=== PATIENT | male | born 1940 | race Caucasian/White ===

== ENCOUNTER 2017-12-07 09:32 | Emergency (ER) | payer MEDICARE ==
[2017-12-07] MEDS ORDERED: Oxymetazoline 0.05% Nasal Spray 15 ML Bottle NAS ONE (09:33)
[2017-12-07 09:40] VITALS: BP 159/66
--- NOTE | 2017-12-07 09:40 | EDM.PDOC ---
ED HPI GENERAL MEDICAL PROBLEM - General Stated Complaint: BLOODY NOSE Time Seen by Provider: 12/07/17 09:35 Source of Information: Reports: Patient History Limitations: Reports: No Limitations - History of Present Illness INITIAL COMMENTS - FREE TEXT/NARRATIVE: This 77 yo male patient reports to the ED with a bloody nose. The patient reports he noticed the bloody nose earlier this morning, the bleeding stopped for a little while, but started again. The patient reports he has not been able to control the bleeding this time. The patient is on blood thinners (Plavix and aspirin) increasing the difficulties in stopping the bleeding. Onset: Today Duration: Minutes:, Constant Location: Reports: Face Quality: Reports: Dull Severity: Moderate Improves with: Reports: None Worsens with: Reports: None Associated Symptoms: Reports: No Other Symptoms - Related Data Allergies Allergy/AdvReac Type Severity Reaction Status Date / Time No Known Allergies Allergy Verified 12/07/17 10:08 Home Meds: Home Meds Aspirin [Noemy Chewable] 81 mg PO DAILY 10/23/13 [History] Clopidogrel [Plavix] 75 mg PO DAILY 10/23/13 [History] Insulin Lispro [Humalog Kwikpen U-100] 10 units SQ TIDMEALS 10/23/13 [History] Levothyroxine [Synthroid] 0.05 mg PO DAILY 10/23/13 [History] Lisinopril [Zestril] 5 mg PO BID 10/23/13 [History] Nitroglycerin [Nitrostat] 0.4 mg SL ASDIRECTED PRN 10/23/13 [History] Tamsulosin [Tamsulosin 24 Hr] 0.4 mg PO DAILY 10/23/13 [History] atorvaSTATin [Lipitor] 40 mg PO BEDTIME 10/23/13 [History] metFORMIN [Glucophage] 1,000 mg PO BIDM 10/23/13 [History] Metoprolol Succinate [Toprol XL 50mg] 75 mg PO DAILY 02/08/16 [History] Furosemide [Furosemide] 40 mg PO ASDIRECTED 07/07/16 [History] Insulin Glarg,Human.Rec.Analog [LantUS Solostar] 30 units SQ BEDTIME 07/07/16 [ History] Isosorbide Mononitrate [Isosorbide Mononitrate ER] 30 mg PO DAILY 07/07/16 [ History] Acetaminophen [Mapap] 325 mg PO DAILY 12/30/16 [History] Sertraline [Zoloft] 50 mg PO DAILY 12/30/16 [History] Past Medical History HEENT History: Reports: None, Cataract, Impaired Vision Other HEENT History: wears glasses, Cardiovascular History: Reports: Angina, CAD, Cardiomyopathy, Heart Failure, High Cholesterol, Hypertension, Other (See Below) Other Cardiovascular History: SINUS BRADYCARDIA Respiratory History: Reports: None Gastrointestinal History: Reports: None Genitourinary History: Reports: BPH, Retention, Urinary Musculoskeletal History: Reports: None Neurological History: Reports: Other (See Below) Other Neuro History: INSOMNIA Psychiatric History: Reports: Anxiety Endocrine/Metabolic History: Reports: Diabetes, Type II, Hypothyroidism Hematologic History: Reports: Anemia, B12 Deficiency, Iron Deficiency Immunologic History: Reports: None Oncologic (Cancer) History: Reports: None Dermatologic History: Reports: None - Infectious Disease History Infectious Disease History: Reports: Chicken Pox - Past Surgical History Cardiovascular Surgical History: Reports: Coronary Artery Bypass GI Surgical History: Reports: Hernia, Inguinal Neurological Surgical History: Reports: Lumbar Spine Social & Family History - Tobacco Use Smoking Status *Q: Never Smoker Second Hand Smoke Exposure: No - Caffeine Use Caffeine Use: Reports: Soda - Recreational Drug Use Recreational Drug Use: No - Living Situation & Occupation Living situation: Reports: Alone Occupation: Employed ED ROS ENT - Review of Systems Review Of Systems: ROS reveals no pertinent complaints other than HPI. ED EXAM, ENT - Physical Exam Exam: See Below Exam Limited By: No Limitations General Appearance: Alert, WD/WN, Moderate Distress Eye Exam: Bilateral Eye: EOMI, Normal Inspection, PERRL Ears: Normal External Exam, Normal Canal, Hearing Grossly Normal, Normal TMs Nose: Active Bleeding (Right posterior nare) Mouth/Throat: Normal Inspection, Normal Gums, Normal Lips, Normal Oropharynx, Normal Teeth Head: Atraumatic, Normocephalic Neck: Normal Inspection, Supple, Non-Tender, Full Range of Motion Respiratory/Chest: No Respiratory Distress, Lungs Clear, Normal Breath Sounds, No Accessory Muscle Use, Chest Non-Tender Cardiovascular: Normal Peripheral Pulses, Regular Rate, Rhythm, No Edema, No Gallop, No JVD, No Murmur, No Rub GI/Abdominal: Normal Bowel Sounds (Male) Exam: Deferred Rectal (Males) Exam: Deferred Back: Normal Inspection, Full Range of Motion Extremities: Normal Inspection, Normal Range of Motion, Non-Tender, No Pedal Edema, Normal Capillary Refill Neurological: Alert, Oriented, CN II-XII Intact, Normal Cognition, Normal Gait, Normal Reflexes, No Motor/Sensory Deficits Psychiatric: Normal Affect, Normal Mood Skin: Warm, Dry, Intact, Normal Color, No Rash Lymphatic: No Adenopathy ED ENT PROCEDURES - Epistaxis Procedure Indication: Epistaxis Recent anticoagulants/antiplatlets: Yes Uncontrolled HTN: No Recent septal/nasal surgery: No Site of bleeding: Right Nare Clearing of clots: Patient Blew Nose Topical Meds: Phenylephrine Ice pack to area: No Posterior packing: Long Nasal Tampon Complications: No Course - Vital Signs Last Recorded V/S: Last Vital Signs Temp 36.8 C 12/07/17 09:36 Pulse 55 L 12/07/17 09:36 Resp 16 12/07/17 09:36 BP 159/66 H 12/07/17 09:36 Pulse Ox 99 12/07/17 09:36 - Orders/Labs/Meds Meds: Medications Discontinued Medications Generic Name Dose Route Start Last Admin Trade Name Jericho PRN Reason Stop Dose Admin Oxymetazoline HCl 1 ml 12/07/17 09:33 12/07/17 09:42 Afrin Original 0.05% Nasal [place] MARGARETH 12/07/17 09:34 1 ml ONETIME ONE Administration Departure - Departure Time of Disposition: 10:37 Disposition: Home, Self-Care 01 Condition: Fair Clinical Impression: Epistaxis - Discharge Information Instructions: Nosebleed, [id number] Care Plan Goals: The patient was advised of the examination results during the visit. The patient 's right nare was packed with a long (anterior/posterior) nasal packing. The patient was instructed to leave the packing in place for the next 3 days. The patient should establish an appointment with his primary care facility for removal of the nasal packing. If the patient has any additional symptoms or concerns, the patient should either follow-up with his primary care facility or return to the emergency department.
== END 2017-12-07 10:56 | disposition home or self-care (01) ==
LOC: DL.ED 09:32
DX: R04.0 Epistaxis (principal); I11.0 Hypertensive heart disease with heart failure; I50.9 Heart failure, unspecified; I25.10 Atherosclerotic heart disease of native coronary artery without angina pectoris; E11.9 Type 2 diabetes mellitus without complications; E03.9 Hypothyroidism, unspecified; Z95.1 Presence of aortocoronary bypass graft; Z79.4 Long term (current) use of insulin; Z79.899 Other long term (current) drug therapy; Z79.82 Long term (current) use of aspirin; Z79.02 Long term (current) use of antithrombotics/antiplatelets
CPT/HCPCS: 30901; 30905; 99282; 99283

== ENCOUNTER 2017-12-08 10:09 | Emergency (ER) | payer MEDICARE ==
[2017-12-08] MEDS ORDERED: Oxymetazoline 0.05% Nasal Spray 15 ML Bottle NAS ONE (10:14)
--- NOTE | 2017-12-08 10:19 | EDM.PDOC ---
ED HPI GENERAL MEDICAL PROBLEM - General Stated Complaint: BLOODY NOSE Time Seen by Provider: 12/08/17 10:10 Source of Information: Reports: Patient History Limitations: Reports: No Limitations - History of Present Illness INITIAL COMMENTS - FREE TEXT/NARRATIVE: This 77 yo male patient reports to the ED with a continued nose bleed. The patient was seen in the ED yesterday for the same thing, had packing placed in the right nare, but has had episodes of continued bleeding. The patient is on Plavix and aspirin due to previous cardiac problems. Onset Date: 12/07/17 Duration: Intermittent Location: Reports: Face (nosebleed) Quality: Reports: Other Severity: Moderate Improves with: Reports: None Worsens with: Reports: None Associated Symptoms: Reports: No Other Symptoms - Related Data Allergies Allergy/AdvReac Type Severity Reaction Status Date / Time No Known Allergies Allergy Verified 12/07/17 10:08 Home Meds: Home Meds Aspirin [Noemy Chewable] 81 mg PO DAILY 10/23/13 [History] Clopidogrel [Plavix] 75 mg PO DAILY 10/23/13 [History] Insulin Lispro [Humalog Kwikpen U-100] 10 units SQ TIDMEALS 10/23/13 [History] Levothyroxine [Synthroid] 0.05 mg PO DAILY 10/23/13 [History] Lisinopril [Zestril] 5 mg PO BID 10/23/13 [History] Nitroglycerin [Nitrostat] 0.4 mg SL ASDIRECTED PRN 10/23/13 [History] Tamsulosin [Tamsulosin 24 Hr] 0.4 mg PO DAILY 10/23/13 [History] atorvaSTATin [Lipitor] 40 mg PO BEDTIME 10/23/13 [History] metFORMIN [Glucophage] 1,000 mg PO BIDM 10/23/13 [History] Metoprolol Succinate [Toprol XL 50mg] 75 mg PO DAILY 02/08/16 [History] Furosemide [Furosemide] 40 mg PO ASDIRECTED 07/07/16 [History] Insulin Glarg,Human.Rec.Analog [LantUS Solostar] 30 units SQ BEDTIME 07/07/16 [ History] Isosorbide Mononitrate [Isosorbide Mononitrate ER] 30 mg PO DAILY 07/07/16 [ History] Acetaminophen [Mapap] 325 mg PO DAILY 12/30/16 [History] Sertraline [Zoloft] 50 mg PO DAILY 12/30/16 [History] Past Medical History HEENT History: Reports: None, Cataract, Impaired Vision Other HEENT History: wears glasses, Cardiovascular History: Reports: Angina, CAD, Cardiomyopathy, Heart Failure, High Cholesterol, Hypertension, Other (See Below) Other Cardiovascular History: SINUS BRADYCARDIA Respiratory History: Reports: None Gastrointestinal History: Reports: None Genitourinary History: Reports: BPH, Retention, Urinary Musculoskeletal History: Reports: None Neurological History: Reports: Other (See Below) Other Neuro History: INSOMNIA Psychiatric History: Reports: Anxiety Endocrine/Metabolic History: Reports: Diabetes, Type II, Hypothyroidism Hematologic History: Reports: Anemia, B12 Deficiency, Iron Deficiency Immunologic History: Reports: None Oncologic (Cancer) History: Reports: None Dermatologic History: Reports: None - Infectious Disease History Infectious Disease History: Reports: Chicken Pox - Past Surgical History Cardiovascular Surgical History: Reports: Coronary Artery Bypass GI Surgical History: Reports: Hernia, Inguinal Neurological Surgical History: Reports: Lumbar Spine Social & Family History - Tobacco Use Smoking Status *Q: Never Smoker Second Hand Smoke Exposure: No - Caffeine Use Caffeine Use: Reports: Soda - Recreational Drug Use Recreational Drug Use: No - Living Situation & Occupation Living situation: Reports: Alone Occupation: Employed ED ROS ENT - Review of Systems Review Of Systems: ROS reveals no pertinent complaints other than HPI. ED EXAM, ENT - Physical Exam Exam: See Below Exam Limited By: No Limitations General Appearance: Alert, WD/WN, Mild Distress Eye Exam: Bilateral Eye: EOMI, Normal Inspection, PERRL Ears: Normal External Exam, Normal Canal, Hearing Grossly Normal, Normal TMs Nose: Active Bleeding (right nare) Mouth/Throat: Normal Inspection, Normal Gums, Normal Lips, Normal Oropharynx, Normal Teeth Head: Atraumatic, Normocephalic Neck: Normal Inspection, Supple, Non-Tender, Full Range of Motion Respiratory/Chest: No Respiratory Distress, Lungs Clear, Normal Breath Sounds, No Accessory Muscle Use, Chest Non-Tender Cardiovascular: Normal Peripheral Pulses, Regular Rate, Rhythm, No Edema, No Gallop, No JVD, No Murmur, No Rub GI/Abdominal: Normal Bowel Sounds, Soft, Non-Tender, No Organomegaly, No Distention, No Abnormal Bruit, No Mass (Male) Exam: Deferred Rectal (Males) Exam: Deferred Back: Normal Inspection, Full Range of Motion Extremities: Normal Inspection, Normal Range of Motion, Non-Tender, No Pedal Edema, Normal Capillary Refill Neurological: Alert, Oriented, CN II-XII Intact, Normal Cognition, Normal Gait, Normal Reflexes, No Motor/Sensory Deficits Psychiatric: Normal Affect, Normal Mood Skin: Warm, Dry, Intact, Normal Color, No Rash Lymphatic: No Adenopathy Course - Vital Signs Last Recorded V/S: Last Vital Signs Temp 36.0 C 12/08/17 10:11 Pulse 67 12/08/17 11:14 Resp 18 12/08/17 11:14 BP 98/65 12/08/17 11:14 Pulse Ox 92 L 12/08/17 11:14 - Orders/Labs/Meds Meds: Medications Discontinued Medications Generic Name Dose Route Start Last Admin Trade Name Jericho PRN Reason Stop Dose Admin Oxymetazoline HCl 1 ml 12/08/17 10:14 12/08/17 10:28 Afrin Original 0.05% Nasal [place] MARGARETH 12/08/17 10:15 2 spray ONETIME ONE Administration - Re-Assessments/Exams Free Text/Narrative Re-Assessment/Exam: 12/08/17 10:41 The packing was removed from yesterday with no return of bleeding. The patient' s right nare was sprayed with Afrin. The patient was encouraged to wait for at least 15 minutes to monitor for returned bleeding. Departure - Departure Time of Disposition: 11:34 Disposition: Home, Self-Care 01 Condition: Fair Clinical Impression: Epistaxis - Discharge Information Instructions: Nosebleed, [id number] Care Plan Goals: The patient was advised of the examination results during the visit. The packing was removed and Afrin was applied to the right nare with no further bleeding. If the patient has any additional symptoms or concerns, the patient should return to the ED or follow-up with his primary care facility.
[2017-12-08 11:15] VITALS: BP 98/65
== END 2017-12-08 11:40 | disposition home or self-care (01) ==
LOC: DL.ED 10:09
DX: R04.0 Epistaxis (principal); I50.9 Heart failure, unspecified; E78.00 Pure hypercholesterolemia, unspecified; E11.9 Type 2 diabetes mellitus without complications; Z79.82 Long term (current) use of aspirin; Z79.899 Other long term (current) drug therapy; Z79.4 Long term (current) use of insulin
CPT/HCPCS: 99282; 99283

== ENCOUNTER 2017-12-14 06:56 | Emergency (ER) | payer MEDICARE ==
[2017-12-14] MEDS ORDERED: Oxymetazoline 0.05% Nasal Spray 15 ML Bottle NAS ONE (06:57)
[2017-12-14 07:19] VITALS: BP 181/102
--- NOTE | 2017-12-14 07:44 | EDM.PDOC ---
ED HPI GENERAL MEDICAL PROBLEM - General Chief Complaint: ENT Problem Stated Complaint: BLOODY NOSE Time Seen by Provider: 12/14/17 07:01 Source of Information: Reports: Patient History Limitations: Reports: No Limitations - History of Present Illness INITIAL COMMENTS - FREE TEXT/NARRATIVE: This 77 yo male patient reports to the ED with a bloody nose that started at 0130 this morning. The patient has attempted to stop the bleeding with pinching his nose, applying ice to the area and packing his nose with no resolution of the symptoms. The patient was seen 2 times last week in the ED for nose bleeds and reports several additional episodes between the visits. The patient reports he has an appointment with Dr. Rojas today. Onset: Today Onset Date: 12/14/17 Onset Time: 01:30 Duration: Constant Location: Reports: Face Quality: Reports: Other Severity: Moderate Improves with: Reports: None Worsens with: Reports: None Associated Symptoms: Reports: No Other Symptoms - Related Data Allergies Allergy/AdvReac Type Severity Reaction Status Date / Time No Known Allergies Allergy Verified 12/07/17 10:08 Home Meds: Home Meds Aspirin [Noemy Chewable] 81 mg PO DAILY 10/23/13 [History] Clopidogrel [Plavix] 75 mg PO DAILY 10/23/13 [History] Insulin Lispro [Humalog Kwikpen U-100] 10 units SQ TIDMEALS 10/23/13 [History] Levothyroxine [Synthroid] 0.05 mg PO DAILY 10/23/13 [History] Lisinopril [Zestril] 5 mg PO BID 10/23/13 [History] Nitroglycerin [Nitrostat] 0.4 mg SL ASDIRECTED PRN 10/23/13 [History] Tamsulosin [Tamsulosin 24 Hr] 0.4 mg PO DAILY 10/23/13 [History] atorvaSTATin [Lipitor] 40 mg PO BEDTIME 10/23/13 [History] metFORMIN [Glucophage] 1,000 mg PO BIDM 10/23/13 [History] Metoprolol Succinate [Toprol XL 50mg] 75 mg PO DAILY 02/08/16 [History] Furosemide [Furosemide] 40 mg PO ASDIRECTED 07/07/16 [History] Insulin Glarg,Human.Rec.Analog [LantUS Solostar] 30 units SQ BEDTIME 07/07/16 [ History] Isosorbide Mononitrate [Isosorbide Mononitrate ER] 30 mg PO DAILY 07/07/16 [ History] Acetaminophen [Mapap] 325 mg PO DAILY 12/30/16 [History] Sertraline [Zoloft] 50 mg PO DAILY 12/30/16 [History] Past Medical History HEENT History: Reports: None, Cataract, Impaired Vision Other HEENT History: wears glasses, Cardiovascular History: Reports: Angina, CAD, Cardiomyopathy, Heart Failure, High Cholesterol, Hypertension, Other (See Below) Other Cardiovascular History: SINUS BRADYCARDIA Respiratory History: Reports: None Gastrointestinal History: Reports: None Genitourinary History: Reports: BPH, Retention, Urinary Musculoskeletal History: Reports: None Neurological History: Reports: Other (See Below) Other Neuro History: INSOMNIA Psychiatric History: Reports: Anxiety Endocrine/Metabolic History: Reports: Diabetes, Type II, Hypothyroidism Hematologic History: Reports: Anemia, B12 Deficiency, Iron Deficiency Immunologic History: Reports: None Oncologic (Cancer) History: Reports: None Dermatologic History: Reports: None - Infectious Disease History Infectious Disease History: Reports: Chicken Pox - Past Surgical History Head Surgeries/Procedures: Reports: None Cardiovascular Surgical History: Reports: Coronary Artery Bypass GI Surgical History: Reports: Hernia, Inguinal Neurological Surgical History: Reports: Lumbar Spine Social & Family History - Tobacco Use Smoking Status *Q: Never Smoker Second Hand Smoke Exposure: No - Caffeine Use Caffeine Use: Reports: Soda - Recreational Drug Use Recreational Drug Use: No - Living Situation & Occupation Living situation: Reports: Alone Occupation: Employed ED ROS ENT - Review of Systems Review Of Systems: ROS reveals no pertinent complaints other than HPI. ED EXAM, ENT - Physical Exam Exam: See Below Exam Limited By: No Limitations General Appearance: Alert, WD/WN, No Apparent Distress Eye Exam: Bilateral Eye: EOMI, Normal Inspection, PERRL Ears: Normal External Exam, Normal Canal, Hearing Grossly Normal, Normal TMs Nose: Active Bleeding (Right nare) Mouth/Throat: Other (bloody transudate posterior pharynx) Head: Atraumatic, Normocephalic Neck: Normal Inspection, Supple, Non-Tender, Full Range of Motion Respiratory/Chest: No Respiratory Distress, Lungs Clear, Normal Breath Sounds, No Accessory Muscle Use, Chest Non-Tender Cardiovascular: Normal Peripheral Pulses, Regular Rate, Rhythm, No Edema, No Gallop, No JVD, No Murmur, No Rub GI/Abdominal: Normal Bowel Sounds, Soft, Non-Tender, No Organomegaly, No Distention, No Abnormal Bruit, No Mass (Male) Exam: Deferred Rectal (Males) Exam: Deferred Neurological: Alert, Oriented, CN II-XII Intact, Normal Cognition, Normal Gait, Normal Reflexes, No Motor/Sensory Deficits Psychiatric: Normal Affect, Normal Mood Skin: Warm, Dry, Intact, Normal Color, No Rash Lymphatic: No Adenopathy Course - Vital Signs Last Recorded V/S: Last Vital Signs Temp 36.4 C 12/14/17 06:56 Pulse 70 12/14/17 06:56 Resp 18 12/14/17 06:56 BP 181/102 H 12/14/17 06:56 Pulse Ox 98 12/14/17 06:56 - Orders/Labs/Meds Meds: Medications Discontinued Medications Generic Name Dose Route Start Last Admin Trade Name Geraldoq PRN Reason Stop Dose Admin Oxymetazoline HCl 1 ml 12/14/17 06:57 12/14/17 07:00 Afrin Original 0.05% Nasal [place] MARGARETH 12/14/17 06:58 2 spray ONETIME ONE Administration - Re-Assessments/Exams Free Text/Narrative Re-Assessment/Exam: 12/14/17 07:47 bleeding was controlled with pinching the nose and applying Afrin. Departure - Departure Time of Disposition: 07:48 Disposition: Home, Self-Care 01 Condition: Fair Clinical Impression: Epistaxis - Discharge Information Instructions: Nosebleed, [id number] Forms: ED Department Discharge Care Plan Goals: The patient was advised of the examination results during the visit. Bleeding was controlled using Afrin spray and direct pressure. The patient was encouraged to follow-up with an ENT provider for continued evaluation and further management. If the patient has any additional symptoms or concerns, the patient should either visit his primary care facility or return to the emergency department.
== END 2017-12-14 08:00 | disposition home or self-care (01) ==
LOC: DL.ED 06:56
DX: R04.0 Epistaxis (principal); E78.00 Pure hypercholesterolemia, unspecified; E11.9 Type 2 diabetes mellitus without complications; Z79.82 Long term (current) use of aspirin; Z79.4 Long term (current) use of insulin; Z79.899 Other long term (current) drug therapy
CPT/HCPCS: 99282; 99283; A9270

== ENCOUNTER 2017-12-14 08:22 | Emergency (ER) | payer MEDICARE ==
[2017-12-14 08:37] VITALS: BP 149/78
--- NOTE | 2017-12-14 09:06 | EDM.PDOC ---
ED HPI GENERAL MEDICAL PROBLEM - General Chief Complaint: ENT Problem Stated Complaint: BLOODY NOSE Time Seen by Provider: 12/14/17 08:40 Source of Information: Reports: Patient History Limitations: Reports: No Limitations - History of Present Illness INITIAL COMMENTS - FREE TEXT/NARRATIVE: This 77 yo male patient returned to the Ed due to another nose bleed. The patient was seen in the ED and his nose bleed was stopped earlier this morning, but the patient had another nose bleed prior to leaving the facility and reregistered. Onset: Today Duration: Intermittent Location: Reports: Face Quality: Reports: Other Severity: Moderate Improves with: Reports: None Worsens with: Reports: None Associated Symptoms: Reports: No Other Symptoms - Related Data Allergies Allergy/AdvReac Type Severity Reaction Status Date / Time No Known Allergies Allergy Verified 12/07/17 10:08 Home Meds: Home Meds Aspirin [Noemy Chewable] 81 mg PO DAILY 10/23/13 [History] Clopidogrel [Plavix] 75 mg PO DAILY 10/23/13 [History] Insulin Lispro [Humalog Kwikpen U-100] 10 units SQ TIDMEALS 10/23/13 [History] Levothyroxine [Synthroid] 0.05 mg PO DAILY 10/23/13 [History] Lisinopril [Zestril] 5 mg PO BID 10/23/13 [History] Nitroglycerin [Nitrostat] 0.4 mg SL ASDIRECTED PRN 10/23/13 [History] Tamsulosin [Tamsulosin 24 Hr] 0.4 mg PO DAILY 10/23/13 [History] atorvaSTATin [Lipitor] 40 mg PO BEDTIME 10/23/13 [History] metFORMIN [Glucophage] 1,000 mg PO BIDM 10/23/13 [History] Metoprolol Succinate [Toprol XL 50mg] 75 mg PO DAILY 02/08/16 [History] Furosemide [Furosemide] 40 mg PO ASDIRECTED 07/07/16 [History] Insulin Glarg,Human.Rec.Analog [LantUS Solostar] 30 units SQ BEDTIME 07/07/16 [ History] Isosorbide Mononitrate [Isosorbide Mononitrate ER] 30 mg PO DAILY 07/07/16 [ History] Acetaminophen [Mapap] 325 mg PO DAILY 12/30/16 [History] Sertraline [Zoloft] 50 mg PO DAILY 12/30/16 [History] Past Medical History HEENT History: Reports: None, Cataract, Impaired Vision Other HEENT History: wears glasses, Cardiovascular History: Reports: Angina, CAD, Cardiomyopathy, Heart Failure, High Cholesterol, Hypertension, Other (See Below) Other Cardiovascular History: SINUS BRADYCARDIA Respiratory History: Reports: None Gastrointestinal History: Reports: None Genitourinary History: Reports: BPH, Retention, Urinary Musculoskeletal History: Reports: None Neurological History: Reports: Other (See Below) Other Neuro History: INSOMNIA Psychiatric History: Reports: Anxiety Endocrine/Metabolic History: Reports: Diabetes, Type II, Hypothyroidism Hematologic History: Reports: Anemia, B12 Deficiency, Iron Deficiency Immunologic History: Reports: None Oncologic (Cancer) History: Reports: None Dermatologic History: Reports: None - Infectious Disease History Infectious Disease History: Reports: Chicken Pox - Past Surgical History Head Surgeries/Procedures: Reports: None Cardiovascular Surgical History: Reports: Coronary Artery Bypass GI Surgical History: Reports: Hernia, Inguinal Neurological Surgical History: Reports: Lumbar Spine Social & Family History - Tobacco Use Smoking Status *Q: Never Smoker Second Hand Smoke Exposure: No - Caffeine Use Caffeine Use: Reports: Soda - Recreational Drug Use Recreational Drug Use: No - Living Situation & Occupation Living situation: Reports: Alone Occupation: Employed ED ROS ENT - Review of Systems Review Of Systems: ROS reveals no pertinent complaints other than HPI. ED EXAM, ENT - Physical Exam Exam: See Below Exam Limited By: No Limitations General Appearance: Alert, WD/WN, Mild Distress Eye Exam: Bilateral Eye: EOMI, Normal Inspection, PERRL Ears: Normal External Exam, Normal Canal, Hearing Grossly Normal, Normal TMs Nose: Active Bleeding (right nare) Mouth/Throat: Normal Inspection, Normal Gums, Normal Lips, Normal Oropharynx, Normal Teeth Head: Atraumatic, Normocephalic Neck: Normal Inspection, Supple, Non-Tender, Full Range of Motion Respiratory/Chest: No Respiratory Distress, Lungs Clear, Normal Breath Sounds, No Accessory Muscle Use, Chest Non-Tender Cardiovascular: Normal Peripheral Pulses, Regular Rate, Rhythm, No Edema, No Gallop, No JVD, No Murmur, No Rub GI/Abdominal: Normal Bowel Sounds, Soft, Non-Tender, No Organomegaly, No Distention, No Abnormal Bruit, No Mass (Male) Exam: Deferred Rectal (Males) Exam: Deferred Extremities: Normal Inspection, Normal Range of Motion, Non-Tender, No Pedal Edema, Normal Capillary Refill Neurological: Alert, Oriented Skin: Warm, Dry, Intact, Normal Color, No Rash Lymphatic: No Adenopathy Course - Vital Signs Last Recorded V/S: Last Vital Signs Temp 36.3 C 12/14/17 08:36 Pulse 64 12/14/17 08:36 Resp 18 12/14/17 08:36 BP 149/78 H 12/14/17 08:36 Pulse Ox 95 12/14/17 08:36 Departure - Departure Time of Disposition: 09:51 Disposition: Home, Self-Care 01 Condition: Fair Clinical Impression: Epistaxis - Discharge Information Forms: ED Department Discharge Care Plan Goals: The patient was advised of the examination results. The patient's nose was sprayed with Afrin and direct pressure applied to stop bleeding. The patient was observed in the ED for 1 hour with no return of bleeding. If the patient has any additional symptoms or concerns, the patient should follow-up with his primary care facility.
== END 2017-12-14 10:00 | disposition home or self-care (01) ==
LOC: DL.ED 08:22
DX: R04.0 Epistaxis (principal); E78.00 Pure hypercholesterolemia, unspecified; E11.9 Type 2 diabetes mellitus without complications; Z79.82 Long term (current) use of aspirin; Z79.899 Other long term (current) drug therapy; Z79.4 Long term (current) use of insulin
CPT/HCPCS: 99283

== ENCOUNTER 2018-06-03 10:31 | Emergency (ER) | payer MEDICARE ==
[2018-06-03 11:11] VITALS: BP 118/56
[2018-06-03] MEDS ORDERED: Oxymetazoline 0.05% Nasal Spray 15 ML Bottle NAS ONE (11:12)
--- NOTE | 2018-06-03 11:51 | EDM.PDOC ---
ED HPI GENERAL MEDICAL PROBLEM - General Chief Complaint: ENT Problem Stated Complaint: NOSE BLEEDING Time Seen by Provider: 06/03/18 11:35 Source of Information: Reports: Patient History Limitations: Reports: No Limitations - History of Present Illness INITIAL COMMENTS - FREE TEXT/NARRATIVE: This 77 yo male patient reports to the ED with a bloody nose. The patient reports he has had intermittent bleeding since this morning. At the time of the visit, the patient had no blood coming from his nose. The patient reports he has been under increased stress over the past 5 days due to his son being in the hospital in [place] due to head trauma. The patient reports they are in the process of shutting off life support for his son. The patient reports he attempted to pinch his nose which slowed down the bleeding, but it has returned numerous times. The patient has had nose bleeds in the past. Onset: Today Duration: Hour(s):, Intermittent Location: Reports: Face Quality: Reports: Other Severity: Moderate Improves with: Reports: Other (pinching his nose) Worsens with: Reports: None Context: Reports: Other Associated Symptoms: Reports: No Other Symptoms - Related Data Allergies Allergy/AdvReac Type Severity Reaction Status Date / Time No Known Allergies Allergy Verified 12/07/17 10:08 Home Meds: Home Meds Aspirin [Noemy Chewable] 81 mg PO DAILY 10/23/13 [History] Clopidogrel [Plavix] 75 mg PO DAILY 10/23/13 [History] Insulin Lispro [Humalog Kwikpen U-100] 10 units SQ TIDMEALS 10/23/13 [History] Levothyroxine [Synthroid] 0.05 mg PO DAILY 10/23/13 [History] Lisinopril [Zestril] 5 mg PO BID 10/23/13 [History] Nitroglycerin [Nitrostat] 0.4 mg SL ASDIRECTED PRN 10/23/13 [History] Tamsulosin [Tamsulosin 24 Hr] 0.4 mg PO DAILY 10/23/13 [History] atorvaSTATin [Lipitor] 40 mg PO BEDTIME 10/23/13 [History] metFORMIN [Glucophage] 1,000 mg PO BIDM 10/23/13 [History] Metoprolol Succinate [Toprol XL 50mg] 75 mg PO DAILY 02/08/16 [History] Furosemide 40 mg PO ASDIRECTED 07/07/16 [History] Insulin Glarg,Human.Rec.Analog [LantUS Solostar] 30 units SQ BEDTIME 07/07/16 [ History] Isosorbide Mononitrate [Isosorbide Mononitrate ER] 30 mg PO DAILY 07/07/16 [ History] Acetaminophen [Mapap] 325 mg PO DAILY 12/30/16 [History] Sertraline [Zoloft] 50 mg PO DAILY 12/30/16 [History] Past Medical History HEENT History: Reports: None, Cataract, Impaired Vision Other HEENT History: wears glasses, Cardiovascular History: Reports: Angina, CAD, Cardiomyopathy, Heart Failure, High Cholesterol, Hypertension, Other (See Below) Other Cardiovascular History: SINUS BRADYCARDIA Respiratory History: Reports: None Gastrointestinal History: Reports: None Genitourinary History: Reports: BPH, Retention, Urinary Musculoskeletal History: Reports: None Neurological History: Reports: Other (See Below) Other Neuro History: INSOMNIA Psychiatric History: Reports: Anxiety Endocrine/Metabolic History: Reports: Diabetes, Type II, Hypothyroidism Hematologic History: Reports: Anemia, B12 Deficiency, Iron Deficiency Immunologic History: Reports: None Oncologic (Cancer) History: Reports: None Dermatologic History: Reports: None - Infectious Disease History Infectious Disease History: Reports: Chicken Pox - Past Surgical History Head Surgeries/Procedures: Reports: None Cardiovascular Surgical History: Reports: Coronary Artery Bypass GI Surgical History: Reports: Hernia, Inguinal Neurological Surgical History: Reports: Lumbar Spine Social & Family History - Family History Family Medical History: Noncontributory - Tobacco Use Smoking Status *Q: Never Smoker - Caffeine Use Caffeine Use: Reports: Soda - Recreational Drug Use Recreational Drug Use: No - Living Situation & Occupation Living situation: Reports: Alone Occupation: Employed ED ROS ENT - Review of Systems Review Of Systems: ROS reveals no pertinent complaints other than HPI. ED EXAM, ENT - Physical Exam Exam: See Below Exam Limited By: No Limitations General Appearance: Alert, WD/WN, No Apparent Distress Eye Exam: Bilateral Eye: EOMI, Normal Inspection, PERRL Ears: Normal External Exam, Normal Canal, Hearing Grossly Normal, Normal TMs Nose: Other (there is blood in both nares, but no current bleeding) Mouth/Throat: Normal Inspection, Normal Gums, Normal Lips, Normal Oropharynx, Normal Teeth Head: Atraumatic, Normocephalic Neck: Normal Inspection, Supple, Non-Tender, Full Range of Motion Respiratory/Chest: No Respiratory Distress, Lungs Clear, Normal Breath Sounds, No Accessory Muscle Use, Chest Non-Tender Cardiovascular: Normal Peripheral Pulses, Regular Rate, Rhythm, No Edema, No Gallop, No JVD, No Murmur, No Rub GI/Abdominal: Normal Bowel Sounds, Soft, Non-Tender, No Organomegaly, No Distention, No Abnormal Bruit, No Mass (Male) Exam: Deferred Rectal (Males) Exam: Deferred Back: Normal Inspection, Full Range of Motion Extremities: Normal Inspection, Normal Range of Motion, Non-Tender, No Pedal Edema, Normal Capillary Refill Neurological: Alert, Oriented, CN II-XII Intact, Normal Cognition, Normal Gait, Normal Reflexes, No Motor/Sensory Deficits Psychiatric: Normal Affect, Normal Mood Skin: Warm, Dry, Intact, Normal Color, No Rash Lymphatic: No Adenopathy Course - Vital Signs Last Recorded V/S: Last Vital Signs Temp 36.3 C 06/03/18 11:01 Pulse 58 L 06/03/18 11:01 Resp 18 06/03/18 11:01 BP 118/56 L 06/03/18 11:01 Pulse Ox 97 06/03/18 11:01 - Orders/Labs/Meds Meds: Medications Discontinued Medications Generic Name Dose Route Start Last Admin Trade Name [place] PRN Reason Stop Dose Admin Oxymetazoline HCl 1 ml 06/03/18 11:12 06/03/18 11:44 Afrin Original 0.05% Nasal [place] MARGARETH 06/03/18 11:13 1 ml ONETIME ONE Administration Departure - Departure Time of Disposition: 12:52 Disposition: Home, Self-Care 01 Condition: Fair Clinical Impression: Epistaxis not due to trauma, Epistaxis - Discharge Information *PRESCRIPTION DRUG MONITORING PROGRAM REVIEWED*: Not Applicable *COPY OF PRESCRIPTION DRUG MONITORING REPORT IN PATIENT KARIN: Not Applicable Forms: ED Department Discharge Care Plan Goals: The patient was advised of the examination results during the visit. The patient was given nasal sprays of Afrin while in the ED with no recurrent bleeding. If the patient has any additional symptoms or concerns, the patient should either return to the emergency department or follow-up with his primary care facility.
== END 2018-06-03 13:04 | disposition home or self-care (01) ==
LOC: DL.ED 10:31
DX: R04.0 Epistaxis (principal); I11.0 Hypertensive heart disease with heart failure; I50.9 Heart failure, unspecified; E78.00 Pure hypercholesterolemia, unspecified; E11.9 Type 2 diabetes mellitus without complications; E03.9 Hypothyroidism, unspecified; Z79.82 Long term (current) use of aspirin; Z79.4 Long term (current) use of insulin; Z79.899 Other long term (current) drug therapy
CPT/HCPCS: 99283; A9270

== ENCOUNTER 2018-12-22 12:43 | Emergency (ER) | payer MEDICARE ==
[2018-12-22 13:08] VITALS: BP 118/63
[2018-12-22 13:44] LABS: ANION GAP 17.3
[2018-12-22] MEDS ORDERED: Lidocaine 1% with EPINEPHrine 1:100,000 20 ML MDV INJECT ONE (13:44)
[2018-12-22] MEDS ORDERED: Silver Nitrate Applicator Each TOP ONE (13:44)
[2018-12-22] MEDS ORDERED: Oxymetazoline 0.05% Nasal Spray 15 ML Bottle NAS ONE (13:44)
--- NOTE | 2018-12-22 14:48 | EDM.PDOC ---
ED HPI GENERAL MEDICAL PROBLEM - General Chief Complaint: ENT Problem Stated Complaint: BLOODY NOSE Time Seen by Provider: 12/22/18 13:26 Source of Information: Reports: Patient, RN, RN Notes Reviewed History Limitations: Reports: No Limitations - History of Present Illness INITIAL COMMENTS - FREE TEXT/NARRATIVE: Patient presents to ER with complaint of nosebleed which started at 05:30. He tried nasal spray and pinch pressure to nose. This stopped it a few times and then started again. He states he is on Plavix after triple bypass. His house is very dry. Onset: Today Duration: Constant Location: Reports: Other (nose) Quality: Reports: Ache Severity: Severe Improves with: Reports: None Worsens with: Reports: None Associated Symptoms: Reports: No Other Symptoms Treatments [employer]: Reports: Other (see below) Other Treatments [employer]: pressure - Related Data Allergies Allergy/AdvReac Type Severity Reaction Status Date / Time No Known Allergies Allergy Verified 12/22/18 13:08 Home Meds: Home Meds Aspirin [Noemy Chewable] 81 mg PO DAILY 10/23/13 [History] Clopidogrel [Plavix] 75 mg PO DAILY 10/23/13 [History] Insulin Lispro [Humalog Kwikpen U-100] 10 units SQ TIDMEALS 10/23/13 [History] Levothyroxine [Synthroid] 0.05 mg PO DAILY 10/23/13 [History] Lisinopril [Zestril] 5 mg PO BID 10/23/13 [History] Nitroglycerin [Nitrostat] 0.4 mg SL ASDIRECTED PRN 10/23/13 [History] Tamsulosin [Tamsulosin 24 Hr] 0.4 mg PO DAILY 10/23/13 [History] atorvaSTATin [Lipitor] 40 mg PO BEDTIME 10/23/13 [History] metFORMIN [Glucophage] 1,000 mg PO BIDM 10/23/13 [History] Metoprolol Succinate [Toprol XL 50mg] 75 mg PO DAILY 02/08/16 [History] Furosemide 40 mg PO DAILY 07/07/16 [History] Insulin Glarg,Human.Rec.Analog [LantUS Solostar] 30 units SQ BEDTIME 07/07/16 [ History] Isosorbide Mononitrate [Isosorbide Mononitrate ER] 30 mg PO DAILY 07/07/16 [ History] Acetaminophen [Mapap] 325 mg PO DAILY PRN 12/30/16 [History] Sertraline [Zoloft] 50 mg PO DAILY 12/30/16 [History] Past Medical History HEENT History: Reports: None, Cataract, Epistaxis, Impaired Vision Other HEENT History: wears glasses, Cardiovascular History: Reports: Angina, CAD, Cardiomyopathy, Heart Failure, High Cholesterol, Hypertension, Other (See Below) Other Cardiovascular History: SINUS BRADYCARDIA Respiratory History: Reports: None Gastrointestinal History: Reports: None Genitourinary History: Reports: BPH, Retention, Urinary Musculoskeletal History: Reports: None Neurological History: Reports: Other (See Below) Other Neuro History: INSOMNIA Psychiatric History: Reports: Anxiety Endocrine/Metabolic History: Reports: Diabetes, Type II, Hypothyroidism Hematologic History: Reports: Anemia, B12 Deficiency, Iron Deficiency Immunologic History: Reports: None Oncologic (Cancer) History: Reports: None Dermatologic History: Reports: None - Infectious Disease History Infectious Disease History: Reports: Chicken Pox - Past Surgical History Head Surgeries/Procedures: Reports: None Cardiovascular Surgical History: Reports: Coronary Artery Bypass GI Surgical History: Reports: Hernia, Inguinal Neurological Surgical History: Reports: Lumbar Spine Social & Family History - Family History Family Medical History: Noncontributory - Tobacco Use Smoking Status *Q: Never Smoker Second Hand Smoke Exposure: No - Caffeine Use Caffeine Use: Reports: Tea - Recreational Drug Use Recreational Drug Use: No - Living Situation & Occupation Living situation: Reports: Alone Occupation: Employed ED ROS ENT - Review of Systems Review Of Systems: ROS reveals no pertinent complaints other than HPI. ED EXAM, ENT - Physical Exam Exam: See Below Exam Limited By: No Limitations General Appearance: Alert, WD/WN, No Apparent Distress Eye Exam: Bilateral Eye: EOMI, Normal Inspection, PERRL Ears: Normal External Exam, Normal Canal, Hearing Grossly Normal, Normal TMs Nose: Other (active bleeding) Mouth/Throat: Normal Inspection, Normal Gums, Normal Lips, Normal Oropharynx, Normal Teeth Head: Atraumatic Neck: Normal Inspection, Supple, Non-Tender, Full Range of Motion Respiratory/Chest: No Respiratory Distress, Lungs Clear, Normal Breath Sounds, No Accessory Muscle Use, Chest Non-Tender Cardiovascular: Normal Peripheral Pulses, Regular Rate, Rhythm, No Edema, No Gallop, No JVD, No Murmur, No Rub GI/Abdominal: Normal Bowel Sounds, Soft, Non-Tender, No Organomegaly, No Distention, No Abnormal Bruit, No Mass (Male) Exam: Deferred Rectal (Males) Exam: Deferred Back: Normal Inspection, Full Range of Motion Extremities: Normal Inspection, Normal Range of Motion, Non-Tender, No Pedal Edema, Normal Capillary Refill Neurological: Alert, Oriented, CN II-XII Intact, Normal Cognition, Normal Gait, Normal Reflexes, No Motor/Sensory Deficits Psychiatric: Normal Affect, Normal Mood Skin: Warm, Dry, Intact, Normal Color, No Rash ED ENT PROCEDURES - Epistaxis Procedure Indication: Epistaxis Recent anticoagulants/antiplatlets: Yes (Plavix) Uncontrolled HTN: No Recent septal/nasal surgery: No Site of bleeding: Right Nare Topical Meds: Other (Afrin/Lidocaine/Epinephrine) Ice pack to area: Yes Chemical cautery: Silver Nitrate Topical Complications: No Course - Vital Signs Last Recorded V/S: Last Vital Signs Temp 97.4 F 12/22/18 13:04 Pulse 57 L 12/22/18 13:04 Resp 20 12/22/18 13:04 BP 118/63 12/22/18 13:04 Pulse Ox 99 12/22/18 13:04 - Orders/Labs/Meds Labs: Laboratory Tests 12/22/18 12/22/18 12/22/18 Range/Units 13:10 13:10 13:10 WBC 7.4 (5.0-10.0) 10^3/uL RBC 3.91 L (4.6-6.2) 10^6/uL Hgb 11.7 L (14.0-18.0) g/dL Hct 35.4 L (40.0-54.0) % MCV 90.5 (80-100) fL MCH 29.9 (27.0-34.0) pg MCHC 33.1 (33.0-35.0) g/dL Plt Count 179 (150-450) 10^3/uL Neut % (Auto) 69.8 (42.2-75.2) % Lymph % (Auto) 23.1 (20.5-50.1) % Ma[place] % (Auto) 5.9 (2-8) % Eos % (Auto) 1.2 (1.0-3.0) % Baso % (Auto) 0.0 (0.0-1.0) % PT 9.5 (9.0-12.0) SEC INR 1.0 (0.9-1.2) Sodium 133 L (135-145) mmol/L Potassium 5.3 H (3.6-5.0) mmol/L Chloride 98 L (101-111) mmol/L Carbon Dioxide 23.0 (21.0-31.0) mmol/L Anion Gap 17.3 BUN 26 H (7-18) mg/dL Creatinine 1.3 (0.6-1.3) mg/dL Est Cr Clr Drug Dosing 47.59 mL/min Estimated GFR (MDRD) 54 BUN/Creatinine Ratio 20.00 Glucose 261 H (74-105) mg/dL Calcium 8.7 (8.4-10.2) mg/dl Total Bilirubin 0.9 (0.2-1.0) mg/dL AST 20 (10-42) IU/L ALT 12 (10-60) IU/L Alkaline Phosphatase 88 (42-121) IU/L Total Protein 6.3 L (6.7-8.2) g/dl Albumin 3.6 (3.2-5.5) g/dl Globulin 2.7 Albumin/Globulin Ratio 1.33 Meds: Medications Discontinued Medications Generic Name Dose Route Start Last Admin Trade Name Freq PRN Reason Stop Dose Admin Lidocaine/Epinephrine 20 ml 12/22/18 13:44 12/22/18 14:02 Xylocaine 1% With Epinephrine 1:100,000 INJECT 12/22/18 13:45 20 ml ONETIME ONE Administration Oxymetazoline HCl 1 ml 12/22/18 13:44 12/22/18 14:02 Afrin Original 0.05% Nasal [place] MARGARETH 12/22/18 13:45 1 spray ONETIME ONE Administration Silver Nitrate 1 each 12/22/18 13:44 12/22/18 14:03 Silver Nitrate TOP 12/22/18 13:45 1 each ONETIME ONE Administration Departure - Departure Time of Disposition: 14:46 Disposition: Home, Self-Care 01 Condition: Fair Clinical Impression: Epistaxis not due to trauma - Discharge Information *PRESCRIPTION DRUG MONITORING PROGRAM REVIEWED*: No *COPY OF PRESCRIPTION DRUG MONITORING REPORT IN PATIENT KARIN: No Instructions: Nosebleed, [id number] Referrals: PCP,None [Primary Care Provider] - Forms: ED Department Discharge Additional Instructions: RX: Afrin with Lidocaine/Epinephrine Use a humidifier in the home May use Vaseline on a qtip in the nostrils for moisture Return to ER with any further problems Follow up with your primary care facility
== END 2018-12-22 14:56 | disposition home or self-care (01) ==
LOC: DL.ED 12:43
DX: R04.0 Epistaxis (principal); I25.10 Atherosclerotic heart disease of native coronary artery without angina pectoris; I11.0 Hypertensive heart disease with heart failure; I50.9 Heart failure, unspecified; E78.00 Pure hypercholesterolemia, unspecified; E11.9 Type 2 diabetes mellitus without complications; E03.9 Hypothyroidism, unspecified; Z79.82 Long term (current) use of aspirin; Z79.899 Other long term (current) drug therapy; Z79.84 Long term (current) use of oral hypoglycemic drugs; Z79.4 Long term (current) use of insulin
CPT/HCPCS: 30901; 36415; 80053; 85025; 85610; 99283; 99284; A9270-GY

== ENCOUNTER 2019-01-04 15:38 | Emergency (ER) | payer MEDICARE ==
--- NOTE | 2019-01-04 15:25 | EDM.PDOC ---
ED HPI GENERAL MEDICAL PROBLEM - General Stated Complaint: UNKNOWN Time Seen by Provider: 01/04/19 15:08 Source of Information: Reports: EMS History Limitations: Reports: Other (CPR in progress) - History of Present Illness INITIAL COMMENTS - FREE TEXT/NARRATIVE: This 78 yo male patient was brought to the ED by [facility] in cardiac arrest. The patient was found in his office with an unknown down time. CPR was started at the scene. EMS had the patient intubated, IO in left lower leg, and CPR in progress. EMS gave the patient 1 dose of Epinephrine as they pulled into the garage. Bystanders on scene report the patient went into his office an unknown amount of time ago and was found in his office unresponsive. EMS report the patient was in Asystole initially. CPR was started. The patient was given 1 dose of Epi on scene. EMS reports the patient was in V Fib after the Epi. One shock was administered. After the 1 shock, EMS reports the patient remained in Asystole. Onset: Today Duration: Constant Quality: Reports: Other Severity: Severe - Related Data Allergies Allergy/AdvReac Type Severity Reaction Status Date / Time No Known Allergies Allergy Verified 12/22/18 13:08 Home Meds: Home Meds Aspirin [Noemy Chewable] 81 mg PO DAILY 10/23/13 [History] Clopidogrel [Plavix] 75 mg PO DAILY 10/23/13 [History] Insulin Lispro [Humalog Kwikpen U-100] 10 units SQ TIDMEALS 10/23/13 [History] Levothyroxine [Synthroid] 0.05 mg PO DAILY 10/23/13 [History] Lisinopril [Zestril] 5 mg PO BID 10/23/13 [History] Nitroglycerin [Nitrostat] 0.4 mg SL ASDIRECTED PRN 10/23/13 [History] Tamsulosin [Tamsulosin 24 Hr] 0.4 mg PO DAILY 10/23/13 [History] atorvaSTATin [Lipitor] 40 mg PO BEDTIME 10/23/13 [History] metFORMIN [Glucophage] 1,000 mg PO BIDM 10/23/13 [History] Metoprolol Succinate [Toprol XL 50mg] 75 mg PO DAILY 02/08/16 [History] Furosemide 40 mg PO DAILY 07/07/16 [History] Insulin Glarg,Human.Rec.Analog [LantUS Solostar] 30 units SQ BEDTIME 07/07/16 [ History] Isosorbide Mononitrate [Isosorbide Mononitrate ER] 30 mg PO DAILY 07/07/16 [ History] Acetaminophen [Mapap] 325 mg PO DAILY PRN 12/30/16 [History] Sertraline [Zoloft] 50 mg PO DAILY 12/30/16 [History] Past Medical History HEENT History: Reports: None, Cataract, Epistaxis, Impaired Vision Other HEENT History: wears glasses, Cardiovascular History: Reports: Angina, CAD, Cardiomyopathy, Heart Failure, High Cholesterol, Hypertension, Other (See Below) Other Cardiovascular History: SINUS BRADYCARDIA Respiratory History: Reports: None Gastrointestinal History: Reports: None Genitourinary History: Reports: BPH, Retention, Urinary Musculoskeletal History: Reports: None Neurological History: Reports: Other (See Below) Other Neuro History: INSOMNIA Psychiatric History: Reports: Anxiety Endocrine/Metabolic History: Reports: Diabetes, Type II, Hypothyroidism Hematologic History: Reports: Anemia, B12 Deficiency, Iron Deficiency Immunologic History: Reports: None Oncologic (Cancer) History: Reports: None Dermatologic History: Reports: None - Infectious Disease History Infectious Disease History: Reports: Chicken Pox - Past Surgical History Head Surgeries/Procedures: Reports: None Cardiovascular Surgical History: Reports: Coronary Artery Bypass GI Surgical History: Reports: Hernia, Inguinal Neurological Surgical History: Reports: Lumbar Spine Social & Family History - Family History Family Medical History: Noncontributory - Caffeine Use Caffeine Use: Reports: Tea - Living Situation & Occupation Living situation: Reports: Alone Occupation: Employed ED ROS GENERAL - Review of Systems Review Of Systems: ROS reveals no pertinent complaints other than HPI. ED EXAM, CPR - Physical Exam Exam: See Below Limited By: Other (CPR in progress) General Appearance: Other (CPR in progress) Eye Exam: Bilateral Eye: Other (Pupils were fixed and dialated) Ears: Normal External Exam Respiratory Chest: Other (The patient was intubated with clear and equal lung sounds) Cardiovascular: Other (Asystole) Departure - Departure Time of Disposition: 15:13 Disposition: 20 Condition: Serious Clinical Impression: Cardiac arrest - Discharge Information *PRESCRIPTION DRUG MONITORING PROGRAM REVIEWED*: Not Applicable *COPY OF PRESCRIPTION DRUG MONITORING REPORT IN PATIENT KARIN: Not Applicable Care Plan Goals: The patient was in cardiac arrest upon arrival. CPR was continued. The patient was given 2 additional doses of Epi and remained in Asystole throughout the visit.
[2019-01-04 15:54] LABS: CHLORIDE,CL 100 mmol/L (101-111); SODIUM,NA 140 mmol/L (135-145)
[2019-01-04 15:59] LABS: ANION GAP 30.4
== END 2019-01-04 17:50 | disposition expired ==
LOC: DL.ED 15:38
DX: I46.9 Cardiac arrest, cause unspecified (principal); I11.0 Hypertensive heart disease with heart failure; I50.9 Heart failure, unspecified; E11.9 Type 2 diabetes mellitus without complications; Z79.82 Long term (current) use of aspirin; Z79.899 Other long term (current) drug therapy; Z79.4 Long term (current) use of insulin
CPT/HCPCS: 36415; 80053; 85025; 92950; 96374; 99284; 99285